=== PATIENT | male | born 1960 | race Caucasian/White ===

== ENCOUNTER → 2021-11-02 13:29 | Outpatient (CLI) | payer MEDICARE, SELFPAY ==
--- NOTE | ~2021-11-02 | XR_ITS ---
EXAM: XR cervical spine 4-5V HISTORY: RADICULOPATHY CERVICAL REGION COMPARISON: None available FINDINGS: Craniocervical association and atlantoaxial joint are normal. No prevertebral soft tissue swelling. The vertebral body heights are maintained. Normal vertebral body alignment. Normal minimal disc space narrowing in the lower cervical spine. Minimal facet sclerosis. IMPRESSION: Mild degenerative disc disease and facet arthropathy. Reviewed, dictated and finalized at location K.
--- NOTE | ~2021-11-02 | XR_ITS ---
EXAM: XR hip BI wo pelvis HISTORY: PAIN IN UNSPECIFIED HIP COMPARISON: None available FINDINGS: Incompletely visualized lumbar fusion hardware. Normal mineralization. No fracture or disl ocation. Mild bilateral superior hip joint space narrowing and subchondral sclerosis. Suggestion of m ild cam deformity, greater on the right as can be seen with femoral acetabular impingement. Osteitis pubis. IMPRESSION: Mild bilateral hip osteoarthritis. Reviewed, dictated and finalized at location K.
--- NOTE | ~2021-11-02 | XR_ITS ---
EXAM: XR lumbar spine 2-3V HISTORY: RADICUOPATHY LUMBAR REGION COMPARISON: None available FINDINGS: Lateral and posterior fusion hardware spanning L3-S1. No hardware fracture or perihardware lucency. Interbody device at L3-4 projects anterior to the anterior cortical margin. Remaining inter body devices are in good position. No fracture or dislocation. No lytic or blastic lesions. IMPRESSION: Interbody device at L3-4 projects anteriorly, recommend comparison to older outside studies if availa ble to assess for position change. Otherwise no hardware-related complication detected. No acute frac ture or traumatic malalignment in the lumbar spine. Reviewed, dictated and finalized at location K. IMPRESSION: Interbody device at L3-4 projects anteriorly, recommend comparison to older out side studies if available to assess for position change. Otherwise no hardware- related complication detected. No acute fracture or traumatic malalignment in t he lumbar spine.
--- NOTE | ~2021-11-02 | XR_ITS ---
EXAM: XR thoracic spine 3V HISTORY: RADICULOPATHY THORACIC REGION COMPARISON: None available FINDINGS: Normal vertebral body alignment. Vertebral body heights are maintained. Pedicles are intac t. Minimal disc space narrowing and/or marginal osteophytosis present at multiple levels. Right lower lobe granuloma. IMPRESSION: Mild multilevel degenerative disc disease. Reviewed, dictated and finalized at location K.
== END ==
PROVIDERS: PCP Internal Medicine
DX: M47.23 Other spondylosis with radiculopathy, cervicothoracic region (principal); M47.25 Other spondylosis with radiculopathy, thoracolumbar region; M47.27 Other spondylosis with radiculopathy, lumbosacral region; M16.0 Bilateral primary osteoarthritis of hip
CPT/HCPCS: 72050; 72072; 72100; 73521